=== PATIENT | male | born 1985 | race Caucasian/White ===

== ENCOUNTER 2021-07-12 05:43 | Outpatient (CLI) | payer BC ==
[~2021-07-12] VITALS: Ht 182.9 cm; Wt 144.3 kg
[2021-07-12] MEDS ORDERED: CETI10TA17 PO (10:45)
[2021-07-12] MEDS ORDERED: LISI1TAB44 PO (10:45)
[2021-07-12] MEDS ORDERED: MV-M1TAB20 PO (10:45)
== END 2021-07-12 12:57 | disposition home or self-care (01) ==
LOC: PREOP 05:43
PROVIDERS: ATTEND Surgery
DX: Z01.818 Encounter for other preprocedural examination (principal)

== ENCOUNTER 2021-07-24 06:57 | Day surgery (SDC) | payer BC ==
[~2021-07-24] VITALS: Ht 183 cm; Wt 144.3 kg
[~2021-07-24 06:57] MED LIST: CETI10TA17 PO; LISI1TAB44 PO; MV-M1TAB20 PO
[2021-07-24] MEDS ORDERED: LACTATED RINGERS 1,000 ML IV STA (07:08)
[2021-07-24] MEDS ORDERED: LACTATED RINGERS 1,000 ML IV ONE (07:14)
[2021-07-24] MEDS ORDERED: HURRICAINE EXT TUBE (BENZOCAINE) XX PRN (07:15)
[2021-07-24 07:19] VITALS: BP 115/77
[2021-07-24] MEDS ORDERED: MIDAZOLAM 2 MG/2 ML (VERSED) VIAL ONE (07:37)
[2021-07-24] MEDS ORDERED: proPOfol 200 MG/20 ML (DIPRIVAN) VIAL IV ONE (07:37)
[2021-07-24] MEDS ORDERED: HURRICAINE EXT TUBE (BENZOCAINE) ONE (08:07)
--- NOTE | 2021-07-24 08:08 | Progress Note-Pre Operative ---
Pre-Operative Progress Note H&P Reviewed The H&P was reviewed, patient examined and no changes noted. Date Seen by Provider: Jul 24, 2021 Time Seen by Provider: 08:08 Date H&P Reviewed: Jul 24, 2021 Time H&P Reviewed: 08:08 Pre-Operative Diagnosis: dysphagia JORDY OMALLEY DO Jul 24, 2021 08:08
[2021-07-24 08:28] VITALS: BP 121/64
[2021-07-24] MEDS ORDERED: PANT40TA2 PO (08:28)
--- NOTE | 2021-07-24 08:29 | Discharge Inst-Simple/Standard ---
Discharge Inst-Standard Discharge Medications New, Converted or Re-Newed RX: Transmitted to Pharmacy Patient Instructions/Follow Up Plan of Care/Instructions/FU: 2 Weeks Fide Activity as Tolerated: Yes Discharge Diet: Regular Diet (Gastritis diet) JORDY OMALLEY DO Jul 24, 2021 08:29
--- NOTE | 2021-07-24 08:35 | Progress Note-Post Operative ---
Post-Operative Progess Note Surgeon (s)/Glass Engraver (s) Surgeon JORDY OMALLEY DO Glass Engraver: none Pre-Operative Diagnosis dysphagia Post-Operative Diagnosis Duodenitis, hiatal hernia, Schatzki ring Procedure & Operative Findings Date of Procedure 07/24/21 Procedure Performed/Findings EGD with biopsies x4 Anesthesia Type per INSPECTOR MACHINE CUT GLASS Estimated Blood Loss Estimated blood loss (mL): none Specimens/Packing Specimens Removed Duodenum x1, antrum x1, GE junction x2 JORDY OMALLEY DO Jul 24, 2021 08:35
[2021-07-24 08:45] VITALS: BP 123/86
--- NOTE | 2021-07-24 11:27 | OPERATIVE REPORT ---
DATE OF SERVICE: 07/24/2021 PREOPERATIVE DIAGNOSIS: Dysphagia. POSTOPERATIVE DIAGNOSES: Duodenitis, hiatal hernia, Schatzki's ring, early reflux esophagitis. SURGEON: Jordy Elizalde DO ANESTHESIA: Per ASSEMBLER FILTERS. PROCEDURE: EGD with biopsies. ESTIMATED BLOOD LOSS: None. COMPLICATIONS: None. INDICATIONS: The patient is a 35-year-old male with dysphagia symptoms. He understands risks and benefits of procedure and wishes to proceed. Consent was signed in the chart. DESCRIPTION OF PROCEDURE: The patient was taken to endoscopy suite, placed in left lateral recumbent position. Timeout was performed. Scope was inserted in mouth, down the esophagus, stomach and into the duodenum without difficulty. There were no polyps, masses or ulcerations within the duodenum. Erythematous changes consistent with duodenitis present. Biopsy of the duodenum was obtained. Scope was slowly retracted back into the stomach where it was further insufflated. No polyps, masses or ulcerations. Biopsy of the antrum was obtained. Scope was retroflexed noting a small hiatal hernia. Scope was returned to its normal position, slowly withdrawn to distal esophagus. Early Schatzki's ring present with changes of reflux esophagitis. Biopsies of the distal esophagus, Schatzki's ring were obtained. Scope was slowly retracted back to completely remove noting no other pathology. The patient tolerated the procedure well without any complications. He was taken to recovery room in stable condition. RECOMMENDATIONS: The patient will be started on Protonix 40 mg daily. He will continue his other medications. He will follow up in approximately 3 weeks. If symptoms do not improve, may benefit from dilatation in approximately 6 to 8 weeks. CC: Dr. Lambert Pate -- requested, unable to deliver. Job ID: [id number] DocumentID: [id number] Dictated Date: 07/24/2021 08:27:31 Escapement Matcher Date: 07/24/2021 11:26:17 Dictated By: JORDY ELIZALDE DO
--- NOTE | 2021-07-24 14:39 | Anesthesia-General Post-Op ---
MAC Patient Condition Mental Status/LOC: Same as Preop Cardiovascular: Satisfactory Nausea/Vomiting: Absent Respiratory: Satisfactory Pain: Controlled Complications: Absent Post Op Complications Complications None Follow Up Care/Instructions Patient Instructions None needed. Anesthesiology Discharge Order Discharge Order Patient is doing well, no complaints, stable vital signs, no apparent adverse anesthesia problems. No complications reported per nursing. GRACIELA SCHOFIELD CRNA Jul 24, 2021 14:39
== END 2021-07-24 08:50 | disposition home or self-care (01) ==
LOC: ENDO 06:57
PROVIDERS: ATTEND Surgery
DX: K29.80 Duodenitis without bleeding (principal); K22.70 Barrett's esophagus without dysplasia; K44.9 Diaphragmatic hernia without obstruction or gangrene; K22.2 Esophageal obstruction; K21.00 Gastro-esophageal reflux disease with esophagitis, without bleeding; E66.9 Obesity, unspecified; Z68.41 Body mass index [BMI] 40.0-44.9, adult; G47.33 Obstructive sleep apnea (adult) (pediatric)
CPT/HCPCS: 88305

== ENCOUNTER → 2021-08-24 | Outpatient (CLI) | payer BC ==
[~2021-08-24] MED LIST changes: +PANT40TA2 PO
== END ==
LOC: CARD 09:00
PROVIDERS: ATTEND Pediatrics
DX: I51.7 Cardiomegaly (principal); Z82.79 Family history of other congenital malformations, deformations and chromosomal abnormalities
CPT/HCPCS: 93306

== ENCOUNTER 2022-11-06 06:21 | Outpatient (CLI) | payer BC ==
[~2022-11-06] VITALS: Ht 182.8 cm; Wt 144.2 kg
[2022-11-06] MEDS ORDERED: CHOL100048 PO (11:31)
== END 2022-11-06 11:42 | disposition home or self-care (01) ==
LOC: PREOP 06:21
PROVIDERS: ATTEND Surgery
DX: Z01.818 Encounter for other preprocedural examination (principal)

== ENCOUNTER 2022-11-15 10:50 | Day surgery (SDC) | payer BC ==
[~2022-11-15] VITALS: Ht 182.9 cm; Wt 144.2 kg
[~2022-11-15 10:50] MED LIST changes: +CHOL100048 PO
[2022-11-15] MEDS ORDERED: LACTATED RINGERS 1,000 ML IV STA (11:05)
[2022-11-15] MEDS ORDERED: HURRICAINE EXT TUBE (BENZOCAINE) XX PRN (11:15)
[2022-11-15 11:35] VITALS: BP 129/72
--- NOTE | 2022-11-15 12:06 | Progress Note-Pre Operative ---
Pre-Operative Progress Note Date H&P Reviewed: Nov 15, 2022 Time H&P Reviewed: 12:06 History & Physical: H&P Reviewed, Patient Examed, No changes noted Pre-Operative Diagnosis: hx mcdaniel's JORDY OMALLEY DO Nov 15, 2022 12:06
[2022-11-15] MEDS ORDERED: MIDAZOLAM 2 MG/2 ML (VERSED) VIAL ONE (12:07)
[2022-11-15] MEDS ORDERED: PROPOFOL INJECTION 50 ML IV ONE (12:07)
--- NOTE | 2022-11-15 12:22 | Progress Note-Post Operative ---
Post-Operative Progess Note Surgeon (s)/Clarification Operator (s) Surgeon JORDY OMALLEY DO Clarification Operator: none Pre-Operative Diagnosis hx mcdaniel's Post-Operative Diagnosis hx of mcdaniel's Procedure & Operative Findings Date of Procedure 11/15/22 Procedure Performed/Findings EGD with biopsies Anesthesia Type per VICE CHAIR Estimated Blood Loss Estimated blood loss (mL): none Specimens/Packing Specimens Removed 1 biopsy antrum, 4x ge JORDY OMALLEY DO Nov 15, 2022 12:22
[2022-11-15 12:25] VITALS: BP 93/54
--- NOTE | 2022-11-15 12:26 | Discharge Inst-Simple/Standard ---
Discharge Inst-Standard Patient Instructions/Follow Up Plan of Care/Instructions/FU: follow up fatemeh 2 weeks Activity as Tolerated: Yes Discharge Diet: Regular Diet JORDY OMALLEY DO Nov 15, 2022 12:26
[2022-11-15 12:30] VITALS: BP 97/51
[2022-11-15 12:39] VITALS: BP 97/51
[2022-11-15 12:50] VITALS: BP 97/51
--- NOTE | 2022-11-15 12:55 | Anesthesia-General Post-Op ---
MAC Patient Condition Mental Status/LOC: Same as Preop Cardiovascular: Satisfactory Nausea/Vomiting: Absent Respiratory: Satisfactory Pain: Controlled Complications: Absent Post Op Complications Complications None Follow Up Care/Instructions Patient Instructions None needed. Anesthesiology Discharge Order Discharge Order Patient is doing well, no complaints, stable vital signs, no apparent adverse anesthesia problems. No complications reported per nursing. JIMMY BELLA CRNA Nov 15, 2022 12:54
--- NOTE | 2022-11-15 16:37 | OPERATIVE REPORT ---
DATE OF SERVICE: 11/15/2022 PREOPERATIVE DIAGNOSIS: History of Sands's esophagus. POSTOPERATIVE DIAGNOSIS: History of Sands's esophagus. PROCEDURE: EGD with biopsy. SURGEON: Jordy Elizalde DO ANESTHESIA: Per IN MOLD COATER. ESTIMATED BLOOD LOSS: None. COMPLICATIONS: None. INDICATIONS: The patient is a 36-year-old male with history of Sands's. He understands risks and benefits of procedure and wishes to proceed. Consent was signed in chart. DESCRIPTION OF PROCEDURE: The patient was taken to endoscopy suite, placed in left lateral recumbent position. Timeout was performed. Scope was inserted in the mouth, down the esophagus, stomach and the duodenum without difficulty. No polyps, masses or ulcerations within the duodenum. Scope was then slowly retracted back the stomach where it was further insufflated. No polyps, masses or ulcerations. Scope was retroflexed noting no other pathology. Scope was returned to its normal position, slowly withdrawn until the distal esophagus. No polyps, masses or ulcerations. Four-quadrant biopsies were obtained. Scope was then slowly retracted back until completely removed. The patient tolerated the procedure well without complications, taken to recovery room in stable condition. RECOMMENDATIONS: The patient will need repeat EGD in 2-3 years. Any issues before that, he will be seen at that time. Follow up on biopsies in 2 weeks. Job ID: [id number] DocumentID: [id number] Dictated Date: 11/15/2022 14:09:01 Consumer Product Advisor Date: 11/15/2022 16:37:00 Dictated By: JORDY ELIZALDE DO
== END 2022-11-15 12:54 | disposition home or self-care (01) ==
LOC: ENDO 10:50
PROVIDERS: ATTEND Surgery
DX: K29.70 Gastritis, unspecified, without bleeding (principal); K21.00 Gastro-esophageal reflux disease with esophagitis, without bleeding; K31.89 Other diseases of stomach and duodenum; Z79.899 Other long term (current) drug therapy; E66.9 Obesity, unspecified; G47.33 Obstructive sleep apnea (adult) (pediatric); Z87.19 Personal history of other diseases of the digestive system; Z68.41 Body mass index [BMI] 40.0-44.9, adult